=== PATIENT | female | born 1995 | race African-American/Black ===

== ENCOUNTER 2016-08-11 13:32 | Emergency (ER) | payer SELFPAY ==
[~2016-08-11] VITALS: Ht 175.3 cm; Wt 79.6 kg
[2016-08-11] MEDS ORDERED: MOTRIN600 MG PO (15:29)
[2016-08-11] MEDS ORDERED: BACLOFEN10 MG PO (15:29)
[2016-08-11 15:46] VITALS: BP 121/84
== END 2016-08-11 15:47 | disposition home or self-care (01) ==
LOC: TRA → EME 13:32 → TRA 13:32
DX: M25.552 Pain in left hip (principal); V03.90XA Pedestrian on foot injured in collision with car, pick-up truck or van, unspecified whether traffic or nontraffic accident, initial encounter
CPT/HCPCS: 73502; 99281; 99283

== ENCOUNTER 2016-08-13 21:12 | Emergency (ER) | payer SELFPAY ==
[~2016-08-13] VITALS: Ht 172.7 cm; Wt 72.0 kg
[~2016-08-13 21:12] MED LIST: BACLOFEN10 MG PO; MOTRIN600 MG PO
[2016-08-13] MEDS ORDERED: VALIUM2 MG PO (23:56)
[2016-08-13] MEDS ORDERED: MOTRIN800 MG PO (23:56)
[2016-08-13] MEDS ORDERED: ULTRACET1 TABLET PO (23:56)
[2016-08-14 00:22] VITALS: BP 124/64
== END 2016-08-14 00:25 | disposition home or self-care (01) ==
LOC: EME 21:12
DX: M54.16 Radiculopathy, lumbar region (principal); M79.605 Pain in left leg; S76.012A Strain of muscle, fascia and tendon of left hip, initial encounter; V09.9XXA Pedestrian injured in unspecified transport accident, initial encounter
CPT/HCPCS: 72131; 72192; 99281; 99284